=== PATIENT | male | born 1985 | race Caucasian/White ===

== ENCOUNTER 2018-06-02 19:11 | Emergency (ER) | payer MEDICAID ==
[~2018-06-02] VITALS: Ht 182.9 cm; Wt 85.9 kg
[~2018-06-02 19:11] MED LIST: CLIN150C8 PO; IBUP-1986 PO; MORP10CA11 PO; PROC25SU31 RC; TRAM50TA2 PO; ZOF4T PO
[2018-06-02 19:30] VITALS: BP 136/97
[2018-06-02] MEDS ORDERED: ibuprofen tablet 400 MG TABLET PO ONE (22:15)
[2018-06-02] MEDS ORDERED: PENI500T2 PO (22:19)
== END 2018-06-02 22:46 | disposition home or self-care (01) ==
LOC: ER 19:12
DX: K04.7 Periapical abscess without sinus (principal); K02.9 Dental caries, unspecified; F17.200 Nicotine dependence, unspecified, uncomplicated; F12.90 Cannabis use, unspecified, uncomplicated; F15.90 Other stimulant use, unspecified, uncomplicated; F14.90 Cocaine use, unspecified, uncomplicated; Z86.19 Personal history of other infectious and parasitic diseases; Z59.0 Homelessness; Z56.0 Unemployment, unspecified; Z79.899 Other long term (current) drug therapy
CPT/HCPCS: 41800; 99283

== ENCOUNTER 2020-07-21 14:24 | Emergency (ER) | payer MEDICAID ==
[~2020-07-21] VITALS: Ht 182.9 cm; Wt 90.9 kg
[2020-07-21 14:40] VITALS: BP 147/97
[2020-07-21] MEDS ORDERED: AMOX-117 PO (14:42)
== END 2020-07-21 14:57 | disposition home or self-care (01) ==
LOC: ER 14:25
DX: J06.9 Acute upper respiratory infection, unspecified (principal); F12.90 Cannabis use, unspecified, uncomplicated; F15.90 Other stimulant use, unspecified, uncomplicated; F11.90 Opioid use, unspecified, uncomplicated; F32.9 Major depressive disorder, single episode, unspecified; Z86.19 Personal history of other infectious and parasitic diseases; Z72.89 Other problems related to lifestyle; Z59.0 Homelessness; Z56.0 Unemployment, unspecified; Z79.899 Other long term (current) drug therapy
CPT/HCPCS: 99283

== ENCOUNTER 2024-03-05 22:19 | Emergency (ER) | payer MEDICAID ==
[~2024-03-05] VITALS: Ht 182.9 cm; Wt 85.8 kg
[~2024-03-05 22:19] MED LIST changes: +CLIN-214 PO; -CLIN150C8 PO
[2024-03-05 22:37] VITALS: BP 142/96; PULSE 120; TEMP 103.1; O2SAT 97
[2024-03-05 23:14] LABS: BASOPHILS % (AUTO) 0.3 % (0-1); EOSINOPHILS # (AUTO) 0.1 X10'3 (0-0.9); EOSINOPHILS % (AUTO) 0.4 % (0-6); HEMATOCRIT 40.6 % (42.0-52.0); HEMOGLOBIN 13.6 g/dl (14.0-17.9); LYMPHOCYTES # (AUTO) 1.2 X10'3 (1.1-4.8); LYMPHOCYTES % (AUTO) 8.5 % (21-51); MEAN CORPUSCULAR HEMOGLOBIN 29.6 PG (27.0-31.0); MEAN CORPUSCULAR HGB CONC 33.5 g/dL (33.0-36.5); MEAN CORPUSCULAR VOLUME 88.4 FL (78-98); MEAN PLATELET VOLUME 9.1 FL (7.4-10.4); MONOCYTES # (AUTO) 1.4 X10'3 (0-0.9); MONOCYTES % (AUTO) 9.6 % (2-12); NEUTROPHILS # (AUTO) 11.6 X10'3 (1.8-7.7); NEUTROPHILS % (AUTO) 81.2 % (42-75); PLATELET COUNT 227 X10'3 (140-440); RED BLOOD COUNT 4.59 X10'6 (4.70-6.10); RED CELL DISTRIBUTION WIDTH 14.5 % (11.5-14.5); WHITE BLOOD COUNT 14.2 X10'3 (4.5-11.0)
[2024-03-05 23:24] LABS: STREP A SCREEN POSITIVE (Neg)
[2024-03-05 23:26] VITALS: RESP 18
[2024-03-05 23:32] LABS: ALANINE AMINOTRANSFERASE 81 U/L (12-78); ALBUMIN 3.3 G/DL (3.4-5.0); ALBUMIN/GLOBULIN RATIO 0.6 (1.1-1.5); ALKALINE PHOSPHATASE 112 IU/L (46-116); ANION GAP 5 (8-16); BILIRUBIN,TOTAL 0.4 MG/DL (0.1-1.0); BLOOD UREA NITROGEN 11 MG/DL (7-18); BUN/CREATININE RATIO 13.4 (10.0-20.0); CALCIUM 8.8 MG/DL (8.5-10.1); CHLORIDE 102 MMOL/L (99-107); CREATININE 0.82 MG/DL (0.60-1.10); GLUCOSE 110 MG/DL (70-104); SODIUM 135 MMOL/L (135-145); TOTAL PROTEIN 8.4 G/DL (6.4-8.2); eCRCL 137 ML/MIN; eGFR > 90 ML/MIN
[2024-03-05 23:38] LABS: ASPARTATE AMINO TRANSFERASE 61 U/L (10-37); POTASSIUM 4.8 MMOL/L (3.5-5.1)
[2024-03-06] MEDS ORDERED: ACET-1025 PO (00:22)
[2024-03-06] MEDS ORDERED: IBUP-1986 PO (00:22)
[2024-03-06] MEDS ORDERED: AMOX875T10 PO (00:22)
== END 2024-03-06 00:26 | disposition home or self-care (01) ==
LOC: ER 22:21
DX: J02.0 Streptococcal pharyngitis (principal); F32.A Depression, unspecified; F12.90 Cannabis use, unspecified, uncomplicated; F15.90 Other stimulant use, unspecified, uncomplicated; F11.90 Opioid use, unspecified, uncomplicated; Z59.00 Homelessness unspecified; Z56.0 Unemployment, unspecified; Z79.1 Long term (current) use of non-steroidal anti-inflammatories (NSAID); Z20.822 Contact with and (suspected) exposure to COVID-19
CPT/HCPCS: 36415; 80053; 85025; 87811; 87880; 99283